=== PATIENT | female | born 1955 | race Hispanic/Latino ===

== ENCOUNTER 2016-09-04 13:32 | Outpatient (CLI) | payer OTHER ==
--- NOTE | 2016-09-04 14:48 | Mammography Report ---
LEFT DIGITAL DIAGNOSTIC MAMMOGRAM with CAD: 09/04/16 13:32:00 CLINICAL: History of a recent periareolar palpable lump which she no longer feels. COMPARISON:12/29/15 screening mammogram. FINDINGS: Routine views without and with implant displacement were performed and demonstrate a fatty breast with no periareolar findings correlate with the recent palpable lump. No mass, architectural distortion or suspicious calcifications. Intact subglandular implant. IMPRESSION: No mammographic evidence of malignancy. BI-RADS CATEGORY: 2 - - Benign RECOMMENDATION: Routine mammographic screening. ACR BI-RADS MAMMOGRAPHIC CODES: 0 = Needs additional imaging evaluation; 1 = Negative; 2 = Benign; 3 = Probably benign; 4 = Suspicious; 5 = Malignant; 6 = Known biopsy-proven malignancy COMMENT: 1. Dense breast tissue, i.e., adenosis, fibrocystic changes, etc., may obscure an underlying neoplasm. 2. Approximately 10% of cancers are not detected with mammography. 3. A negative mammography report should not delay biopsy if a clinically suspicious mass is present. COMMENT: Patient follow-up letters are generated by our [employer] application.
== END 2016-09-04 13:33 | disposition home or self-care (01) ==
LOC: SPVWC 13:32
PROVIDERS: ATTEND Specialist
DX: N63 Unspecified lump in breast (principal)
CPT/HCPCS: G0206-LT

== ENCOUNTER 2018-05-13 13:45 | Outpatient (CLI) | payer OTHER ==
--- NOTE | 2018-05-13 16:11 | Mammography Report ---
BILATERAL DIGITAL SCREENING MAMMOGRAM WITH CAD: 05/13/18 CLINICAL: Routine screening.Breast cancer survivor status post right mastectomy with TRAM reconstruction and status post left implant augmentation . COMPARISON:09/04/16 left mammogram and 07/22/16 right mammogram. FINDINGS: Routine views of the left breast without and with implant displacement demonstrate a relatively fatty breast. Intact subglandular implant. No mass, architectural distortion or suspicious calcifications. Normal appearance of the right TRAM reconstruction. IMPRESSION: No mammographic evidence of malignancy. BI-RADS CATEGORY: 2 -- Benign RECOMMENDATION: Routine mammographic screening in one year. COMMENT: Patient follow-up letters are generated by our [employer] application.
== END 2018-05-13 13:46 | disposition home or self-care (01) ==
LOC: SPVWC 13:45
PROVIDERS: ATTEND Specialist
DX: Z12.31 Encounter for screening mammogram for malignant neoplasm of breast (principal); Z90.11 Acquired absence of right breast and nipple
CPT/HCPCS: 77067